=== PATIENT | female | born 1985 | race Caucasian/White ===

== ENCOUNTER 2018-04-13 01:47 | Emergency (ER) | payer OTHER ==
[~2018-04-13] VITALS: Ht 172.7 cm; Wt 59.0 kg
[~2018-04-13 01:47] MED LIST: AYGESTIN 5 MG TA5 M1 PO; BACTRIM DS TAB1 EACH PO; BACTROBAN15 GM TP; DIAZEPAM 5 MG5 M1 OR; DOXYCYCLINE 10100 M1 PO; IBUPROFEN 800800 M1 PO; LEXAPRO20 MG; LORTABELXR PO; NOHOMEMEDICATIONS; REVIA 50 MG TAB50 M1 PO; VENTOLIN HFA 1818 GM INH; ZOFRAN4 MG PO; ZPAK PO
[2018-04-13] MEDS ORDERED: AMOXICILLIN500 M1 PO (02:15)
[2018-04-13 02:17] VITALS: BP 131/77
== END 2018-04-13 02:17 | disposition home or self-care (01) ==
LOC: M.ERS 01:47
DX: O99.512 Diseases of the respiratory system complicating pregnancy, second trimester (principal); J40 Bronchitis, not specified as acute or chronic; F17.200 Nicotine dependence, unspecified, uncomplicated; N80.9 Endometriosis, unspecified; Z3A.00 Weeks of gestation of pregnancy not specified